=== PATIENT | male | born 1935 | race Caucasian/White ===

== ENCOUNTER 2017-05-06 07:39 | Inpatient (IN) ==
--- NOTE | 2017-05-06 08:55 | DI ---
EXAM: CHEST FRONTAL VIEW HISTORY: Cough. COMPARISON: 08/20/2015 FINDINGS: Heart size and mediastinum remain within normal limits. Ectasia of the aorta is again no king. There are scattered calcifications suggesting old granulomatous disease. No acute infiltrates are seen. No vascular congestion. There is no consolidation, visible pleural fluid or pneumothorax. Bones reveal no acute fracture. IMPRESSION: No acute cardiopulmonary process.
--- NOTE | 2017-05-06 08:56 | DI ---
EXAM: Right shoulder two views HISTORY: Shoulder pain. FINDINGS: There is at least mild glenohumeral joint arthropathy. Moderate AC joint osteoarthritis. No acute fracture is seen. No joint dislocation or soft tissue finding. IMPRESSION: Arthropathy of the shoulder. No acute findings.
--- NOTE | 2017-05-06 08:58 | DI ---
EXAM: Three views of the right elbow HISTORY: Right elbow pain. COMPARISON: None FINDINGS: There is no cortical irregularity or displaced fracture of the right elbow. There is degen erative change and osteophyte formation off the medial and lateral epicondyles. There is no lytic or blastic lesion. The soft tissues are normal. 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
[2017-05-06] MEDS ORDERED: ROCEPHIN 1 GM in SODIUM CHLORIDE 50 ML IV STA (09:25)
[2017-05-06] MEDS ORDERED: ROCEPHIN ONE (09:35)
--- NOTE | 2017-05-06 10:07 | ED.PDOC ---
General ED Provider: Dr. LILIANA BUSCH Chief Complaint: Fall Stated Complaint: weakness/ fall Time Seen by Physician: 08:00 (SEN WITH SHAHRIAR AND LEILANI PRESENT) Mode of Arrival: Ambulance Information Source: Patient, Family Exam Limitations: No limitations Primary Care Provider: VINAYAK MARCOS Nursing and Triage Documentation Reviewed and Agree: Yes (DENINED PAIN ALONG ENTIRE SPINE) Reviewed sepsis parameters & appropriate labs ordered?: Yes System Inflammatory Response Syndrome: Not Applicable Sepsis Protocol: For patient's 13 years and over: Temp is 96.8 and below OR 101 and greater Pulse >90 BPM Resp >20/minute Acutely Altered Mental Status Are patient's symptoms suggestive of a new infection, such as: -Pneumonia -Skin, Soft Tissue -Endocarditis -UTI -Bone, Joint Infection -Implantable Device -Acute Abdominal Infection -Wound Infection -Meningitis -Blood Stream Catheter Infection -Unknown System Inflammatory Response Syndrome: Not Applicable Miscellaneous Complaint Exam - Complex/Multi-System Complaint/Exam Onset/Duration: ground level fall C/O shoulder pain right sided and generalized weakness Symptoms Are: Still present Episodes Lasting: Hours Location of Pain: right elbow and shoulder Pain Radiates to: no Character: dull Aggravating: nothing Alleviating: none Associated Signs and Symptoms: Reports: Weakness, Cough Recent Echo/LV Function: No Respiratory Distress: None JVD Present: No Tachypnea Present: No Stridor Present: No Abdominal Findings: Present: Normal findings Glascow Coma Scale (see protocol): 15 Meningeal Signs Positive: Yes Focal Weakness: Present: None Focal Sensory Loss: Present: None Gait: Unable Gag Reflex Present: Yes Babinski Sign: Negative Right, Negative Left Skin Findings: Present: Normal findings Joint Swelling Present: No In-Dwelling Device Present: No Differential Diagnosis: Sepsis, UTI, Other (rhabdo) Quality Indicators for Cardiac Chest Pain: EKG in 10min. Quality Indicators for AMI: EKG in 10min. Quality Indicators For Pneumonia/CAP: Antibiotics in 6hr-admit, SpO2 assessed, Empiric Antibiotic Rx, Vital signs, Mental status assessed Quality Indicator For Non-Traumatic Chest Pain/Syncope: EKG Performed Review of Systems - Review Of Systems Constitutional: Reports: Malaise, Weakness Eyes: Reports: No symptoms Ears, Nose, Mouth, Throat: Reports: No symptoms Respiratory: Reports: Cough Cardiac: Reports: No symptoms GI: Reports: No symptoms : Reports: No symptoms Musculoskeletal: Denies: Back pain, Neck pain Skin: Reports: No symptoms Neurological: Reports: No symptoms Endocrine: Reports: No symptoms Hematologic/Lymphatic: Reports: No symptoms All Other Systems: Reviewed and Negative Past Medical History - Past Medical History Previously Healthy: Yes Endocrine: Reports: Dyslipidemia Cardiovascular: Reports: Hypertension Respiratory: Reports: None Hematological: Reports: None Gastrointestinal: Reports: None Genitourinary: Reports: None Neuro/Psych: Reports: None Musculoskeletal: Reports: None Cancer: Reports: None - Surgical History General Surgical History: Reports: None - Family History Family History: Reports: None - Social History Smoking Status: Current some day smoker Hx Substance Use: No Alcohol Screening: Occasionally - Immunizations Tetanus Shot up to Date: No Physical Exam - Physical Exam Appearance: Well-appearing Ill-appearing: Mild Pain Distress: Mild Eyes: FREDY, EOMI, Conjunctiva clear ENT: Dry mucosa Respiratory: Breath sounds diminished Cardiovascular: RRR, Pulses normal, No rub, No murmur GI/: Soft, Nontender, No masses, Bowel sounds normal, No Organomegaly Musculoskeletal: Normal strength, ROM intact, No edema, No calf tenderness Skin: Warm, Dry, Normal color Neurological: Sensation intact, Motor intact, Reflexes intact, Cranial nerves intact, Alert, Oriented Psychiatric: Affect appropriate, Mood appropriate Interpretation - Radiology Interpretation Radiology Interpretation By: Radiologist Radiology Results: No acute changes Physician Notification - Case Discussed Physician Notified: beverly WOOD Time of Notification: 10:12 Admit To: SCU Critical Care Note - Critical Care Note Total Time (mins): 0 Course - Course Hematology/Chemistry: 05/06/17 08:45 05/06/17 08:45 Orders, Labs, Meds: Lab Review 05/06/17 05/06/17 05/06/17 08:45 08:45 09:00 WBC 25.94 H RBC 3.82 L Hgb 12.7 L Hct 36.6 L MCV 95.8 H MCH 33.2 H MCHC 34.7 RDW Coeff of Jermaine 12.9 Plt Count 215 Immature Gran % (Auto) 0.9 Neut % (Auto) 88.4 Lymph % (Auto) 4.9 L [place] % (Auto) 5.7 Eos % (Auto) 0.0 Baso % (Auto) 0.1 Immature Gran # (Auto) 0.2 Neut # 23.0 H Lymph # 1.3 [place] # 1.5 Eos # 0.0 Baso # 0.0 Sodium 139 Potassium 3.8 Chloride 106 Carbon Dioxide 25 Anion Gap 11.8 BUN 13 Creatinine 0.95 Estimated GFR (MDRD) 76.00 BUN/Creatinine Ratio 13.68 Glucose 130 H Lactic Acid Calcium 9.3 Total Bilirubin 1.0 AST 36 ALT 19 Alkaline Phosphatase 47 L Total Creatine Kinase 1130 CK-MB (CK-2) 9.6 H* CK-MB (CK-2) % 0.23484 Troponin I 0.0270 Total Protein 6.3 Albumin 3.2 L Globulin 3.1 Albumin/Globulin Ratio 1.03 TSH 0.456 Free T4 0.96 Urine Color Dark Urine Clarity Slightly Urine pH 5.5 Ur Specific [place] 1.025 Urine Protein Negative Urine Glucose (UA) Negative Urine Ketones Negative Urine Blood 2+ Urine Nitrite Positive Urine Bilirubin 1+ Urine Urobilinogen 2.0 Ur Leukocyte Esterase 1+ Urine Microscopic WBC 5-10 Ur Squamous Epith Cells Not present Urine Bacteria 3+ 05/06/17 09:36 WBC RBC Hgb Hct MCV MCH MCHC RDW Coeff of Jermaine Plt Count Immature Gran % (Auto) Neut % (Auto) Lymph % (Auto) [place] % (Auto) Eos % (Auto) Baso % (Auto) Immature Gran # (Auto) Neut # Lymph # [place] # Eos # Baso # Sodium Potassium Chloride Carbon Dioxide Anion Gap BUN Creatinine Estimated GFR (MDRD) BUN/Creatinine Ratio Glucose Lactic Acid 12.1 Calcium Total Bilirubin AST ALT Alkaline Phosphatase Total Creatine Kinase CK-MB (CK-2) CK-MB (CK-2) % Troponin I Total Protein Albumin Globulin Albumin/Globulin Ratio TSH Free T4 Urine Color Urine Clarity Urine pH Ur Specific [place] Urine Protein Urine Glucose (UA) Urine Ketones Urine Blood Urine Nitrite Urine Bilirubin Urine Urobilinogen Ur Leukocyte Esterase Urine Microscopic WBC Ur Squamous Epith Cells Urine Bacteria Orders Category Date Time Status EKG-(ED ONLY) Stat CARDIO 05/06/17 08:13 Completed ED IV/MEDIPORT/POWERPORT .ONCE EMERGENCY 05/06/17 08:13 Active BLOOD CULTURE (ED ONLY) Stat LAB 05/06/17 09:36 Received CBC W/ AUTO DIFF Stat LAB 05/06/17 08:45 Completed COMPREHENSIVE METABOLIC PANEL Stat LAB 05/06/17 08:45 Completed CREATINE KINASE Stat LAB 05/06/17 08:45 Completed FREE T4 (FREE THYROXINE) Stat LAB 05/06/17 08:45 Completed LACTIC ACID Stat LAB 05/06/17 09:36 Received PROCALCITONIN Stat LAB 05/06/17 09:36 Received THYROID STIMULATING HORMONE Stat LAB 05/06/17 08:45 Completed TROPONIN I Stat LAB 05/06/17 08:45 Completed URINALYSIS C & S IF INDICATED Stat LAB 05/06/17 09:00 Completed URINE CULTURE Stat LAB 05/06/17 09:00 Received 0.9 % Sodium Chloride [Saline Flush] MEDS 05/06/17 08:12 Active 1 syr IVF PRN PRN Ceftriaxone Sodium [Rocephin] MEDS 05/06/17 09:35 Discontinued 1 gm .ROUTE .STK-MED ONE Ceftriaxone Sodium [Rocephin] 1 gm MEDS 05/06/17 09:25 Discontinued 0.9 % Sodium Chloride [Sodium Chloride] 50 ml IV ONCE CHEST, 1V AP ONLY Stat RADS 05/06/17 08:12 Completed ELBOW, RIGHT MIN 3 VIEWS Stat RADS 05/06/17 08:13 Completed SHOULDER, RIGHT MIN 2V Stat RADS 05/06/17 08:13 Completed Medications Generic Name Dose Route Start Last Admin Trade Name Freq PRN Reason Stop Dose Admin Sodium Chloride 1 syr 05/06/17 08:12 Saline Flush IVF PRN PRN To flush IV Discontinued Medications Generic Name Dose Route Start Last Admin Trade Name Freq PRN Reason Stop Dose Admin Ceftriaxone Sodium 1 gm/ 50 mls @ 75 mls/hr 05/06/17 09:25 05/06/17 09:48 Sodium Chloride IV 05/06/17 10:04 75 mls/hr ONCE STA Administration Vital Signs: Temp Pulse Resp BP Pulse Ox 05/06/17 07:43 98.1 F 77 20 147/82 H 95 Departure - Departure Time of Disposition: 10:12 Disposition: ADMITTED INPATIENT Discharge Problem: Falls Rhabdomyolysis Qualifiers: Rhabdomyolysis type: traumatic Encounter type: initial encounter Qualified Code (s): T79.6XXA - Traumatic ischemia of muscle, initial encounter UTI (urinary tract infection) Qualifiers: Urinary tract infection type: site unspecified Hematuria presence: with hematuria Qualified Code(s): N39.0 - Urinary tract infection, site not specified ; R31.9 - Hematuria, unspecified; R31.9 - Hematuria, unspecified Instructions: Rhabdomyolysis (ED) Condition: Good Pt referred to PMD for follow-up: Yes IPMP verified?: Yes Additional Instructions: Please call your Family Physician as soon as possible to schedule a follow-up appointment. Allergies/Adverse Reactions: Allergies No Known Allergies Allergy (Verified 05/06/17 08:02) Home Medications: Ambulatory Orders Aspirin [Aspirin Chewable] 81 mg PO DAILYWM 11/12/13 Lisinopril/Hydrochlorothiazide [Zestoretic 20-12.5 mg Tab] 0.5 tab PO DAILY 07/23 Metoprolol Tartrate [Lopressor] 50 mg PO DAILY 11/12/13 Omeprazole [Prilosec] 20 mg PO QDAC PRN 11/12/13 Simvastatin 20 mg PO BEDTIME 11/12/13 Tamsulosin HCl [Flomax] 0.4 mg PO DAILY 11/12/13 Fenofibrate Nanocrystallized [Fenofibrate] 145 mg PO DAILY 05/06/17 Levocetirizine Dihydrochloride [Xyzal] 5 mg PO DAILY 05/06/17 Memantine HCl 10 mg PO DAILY 05/06/17 Disposition Discussed With: Patient
[2017-05-06 11:32] VITALS: BMI 23.0
[2017-05-06] MEDS ORDERED: PROTONIX PO STA (13:16)
[2017-05-06] MEDS: INFUVITE ADULT 10 ML in D5%-1/2NS-KCL 40 MEQ/L IV SOL 1,000 ML IV SCH (14:59)
[2017-05-06] MEDS: GENTAMICIN SULFATE 70 MG in SODIUM CHLORIDE 50 ML IV SCH ×2 (15:04→21:29)
[2017-05-06] MEDS: FLOMAX PO SCH (15:04)
[2017-05-06] MEDS: ASPIRIN CHEWABLE PO SCH (15:04)
[2017-05-06] MEDS: ZESTORETIC 20-12.5 MG TAB PO SCH (15:05)
[2017-05-06] MEDS: LOPRESSOR PO SCH (15:06)
--- NOTE | 2017-05-06 20:50 | CT ---
EXAM: CT brain without contrast HISTORY: Fall with weakness and confusion TECHNIQUE: CT of the brain without intravenous contrast FINDINGS: There is no acute hemorrhage midline shift or mass effect. No hydrocephalus or abnormal e xtra-axial fluid collection. Generalized involutional atrophy, severe. Chronic microvascular change s of the white matter tracts, severe. No acute large vessel territorial infarct is seen. The bony c ranium appears normal. The visualized paranasal sinuses are clear. Soft tissues without significant a bnormality. IMPRESSION: 1. Chronic changes as described. No acute intracranial abnormality is seen.
--- NOTE | 2017-05-06 21:00 | CT ---
Exam: CT of the cervical spine without intravenous contrast. Comparison: CT cervical spine performed on 02/03/2015. Reason for exam: Fall at home with weakness. FINDINGS: No acute fracture is seen in the cervical spine. There is moderate to marked degenerative disease seen throughout the cervical spine with osseous demineralization. The prevertebral soft tis sues are within normal limits. The dens is intact. There is a similar appearing grade 1 anterior li sthesis of C4 on C5. Emphysematous disease is seen in the partially imaged lung apices. Impression: 1. No acute fracture is seen in the cervical spine. 2. Moderate to marked degenerative disease with diffuse osseous demineralization, intervertebral bod y disc space height loss, and facet hypertrophy with osteophyte formation. 3. Emphysematous disease in the partially imaged lung apices.
--- NOTE | 2017-05-06 21:00 | CT ---
EXAM: CT pelvis without contrast. TECHNIQUE: Helical axial CT of the pelvis was performed without contrast with coronal and sagittal r econstructions. COMPARISON: None. HISTORY: Trauma with painful right hip FINDINGS: There is no acute fracture or dislocation identified. The superior and inferior pubic kapil i are intact as well as the acetabuli. There is no evidence for proximal femur fracture. There is n o hip dislocation. The sacroiliac joints are unremarkable. There are no sacral ala fracture. The i lium and ischium are intact bilaterally. There is no evidence for lower lumbar fracture. There has b een extensive lumbosacral instrumentation. Hardware appears intact. There are no acute soft tissue a bnormalities. There is advanced atherosclerosis. There is some mild degenerative change of the bilate ral hip joints. IMPRESSION: 1. No acute osseous abnormality in the right hip or elsewhere in the bony pelvis. 2. Other findings as above.
[2017-05-07] MEDS ORDERED: POTASSIUM CHLORIDE 10 MEQ VIAL-ADDITIVE ONLY IV ONE (02:54)
[2017-05-07] MEDS ORDERED: INFUVITE ADULT IV ONE ×2 (02:55→15:16)
[2017-05-07] MEDS: INFUVITE ADULT 10 ML in D5%-1/2NS-KCL 40 MEQ/L IV SOL 1,000 ML IV SCH ×2 (03:10→15:45)
[2017-05-07] MEDS: PROTONIX PO SCH (05:48)
[2017-05-07] MEDS: LOPRESSOR PO SCH (07:45)
[2017-05-07] MEDS: TYLENOL PO PRN ×2 (07:45→23:29)
[2017-05-07] MEDS: ASPIRIN CHEWABLE PO SCH (07:46)
[2017-05-07] MEDS: ROCEPHIN 1 GM in SODIUM CHLORIDE 50 ML IV SCH (08:30)
[2017-05-07] MEDS: GENTAMICIN SULFATE 70 MG in SODIUM CHLORIDE 50 ML IV SCH ×2 (08:31→20:11)
[2017-05-07] MEDS: ZESTORETIC 20-12.5 MG TAB PO SCH (11:06)
[2017-05-07] MEDS: FLOMAX PO SCH (11:07)
[2017-05-07] MEDS ORDERED: POTASSIUM CHLORIDE 20 MEQ VIAL-ADDITIVE ONLY IV ONE (15:17)
[2017-05-07] MEDS ORDERED: VITAMIN B-12 IM STA (19:29)
[2017-05-07] MEDS ORDERED: DEPAKOTE PO STA (19:30)
[2017-05-07] MEDS: VITAMIN B-12 IM SCH (20:16)
[2017-05-08] MEDS ORDERED: DESYREL ONE ×2 (02:24→03:41)
[2017-05-08] MEDS: DESYREL PO STA ×2 (02:24→03:41)
[2017-05-08] MEDS ORDERED: DESYREL PO STA (03:36)
[2017-05-08] MEDS ORDERED: INFUVITE ADULT IV ONE (03:52)
[2017-05-08] MEDS ORDERED: POTASSIUM CHLORIDE 20 MEQ VIAL-ADDITIVE ONLY IV ONE ×2 (03:52→03:54)
[2017-05-08] MEDS: INFUVITE ADULT 10 ML in D5%-1/2NS-KCL 40 MEQ/L IV SOL 1,000 ML IV SCH (05:19)
[2017-05-08] MEDS: PROTONIX PO SCH (05:31)
[2017-05-08] MEDS: GENTAMICIN SULFATE 70 MG in SODIUM CHLORIDE 50 ML IV SCH ×2 (09:14→21:22)
[2017-05-08] MEDS: ASPIRIN CHEWABLE PO SCH (09:26)
[2017-05-08] MEDS: LOPRESSOR PO SCH (09:26)
[2017-05-08] MEDS: VITAMIN B-12 IM SCH (09:27)
[2017-05-08] MEDS: FLOMAX PO SCH (09:32)
[2017-05-08] MEDS: ZESTORETIC 20-12.5 MG TAB PO SCH (09:32)
[2017-05-08] MEDS: ROCEPHIN 1 GM in SODIUM CHLORIDE 50 ML IV SCH (09:56)
[2017-05-08] MEDS: DEPAKOTE PO SCH ×2 (12:55→21:08)
[2017-05-09] MEDS: PROTONIX PO SCH (06:23)
[2017-05-09] MEDS: ASPIRIN CHEWABLE PO SCH (09:21)
[2017-05-09] MEDS: FLOMAX PO SCH (09:21)
[2017-05-09] MEDS: DEPAKOTE PO SCH (09:21)
[2017-05-09] MEDS: LOPRESSOR PO SCH (09:22)
[2017-05-09] MEDS: GENTAMICIN SULFATE 70 MG in SODIUM CHLORIDE 50 ML IV SCH (09:22)
[2017-05-09] MEDS: VITAMIN B-12 IM SCH (09:23)
[2017-05-09] MEDS: ZESTORETIC 20-12.5 MG TAB PO SCH (09:23)
[2017-05-09] MEDS: ROCEPHIN 1 GM in SODIUM CHLORIDE 50 ML IV SCH (10:40)
--- NOTE | 2017-05-09 11:14 | RS.PTINEVL ---
Subjective - Patient information Date of Evaluation: 05/09/17 Date of Arrival on Unit: 05/06/17 Admitted From:: Home Diagnosis: fall at home, weakness, rhabdomyolysis, UTI Usual Living Arrangement: Alone Living Arrangement Comments: has family and friends who assist with meals, housekeeping etc Home Environment: House, Stairs (few), Rail Medical History: Hypertension, Dementia, Arthritis Medical History Comments:: CAD, Alzheimer's disease, GERD Surgical History: Lumbar Spine Surgical History Comments:: cardiac stent Medications: see chart Subjective Information/ Patient Comments:: pt states he is feeling better today. pt states he has been sitting up since breakfast. - Level of function Prior to this admission, the patient could do the following:: Independent ADL's , Independent Ambulation Abilities prior to this admission: pt had assist with housekeeping as well as occasionally helped with meals Current Level of Function: Partially Dependent Current Equipment Used at Home: Straight cane Interventions - Objective Patient Orientation: Person, Place Current Interventions: IV's, Telemetry Range of Motion - ROM Right Upper Extremity AROM: WFL's Left Upper Extremity AROM: WFL's Right Lower Extremity AROM: WFL's Left Lower Extremity AROM: WFL's Muscle Strength - Muscle Strength Right Upper Extremity Strength: Mild Weakness (shld flex 4-/5, elbow flex/ext 4/ 5, decreased manufacturers service representative strength) Left Upper Extremity Strength: Mild Weakness (shld flex 4-/5, elbow flex/ext 4/5 , decreased manufacturers service representative strength) Right Lower Extremity Strength: Mild Weakness (hip flex 4-/5, knee flex/ext 4-/5 , ankle DF/PF 4/5) Left Lower Extremity Strength: Mild Weakness (hip flex 4-/5, knee flex/ext 4-/5 , ankle DF/PF 4/5) Sensation - Sensation Right Upper Extremity Sensation: Intact/Normal Left Upper Extremity Sensation: Intact/Normal Right Lower Extremity Sensation: Intact/Normal Left Lower Extremity Sensation: Intact/Normal Palpation Palpation Findings: None/Normal Balance - Sitting Balance and Reactions Static Sitting Balance: Good Dynamic Sitting Balance: Fair Sitting Equilibrium Reactions: Delayed Left, Delayed Right Sitting Protective Reactions: Delayed Left, Delayed Right - Standing Balance and Reactions Static Standing Balance: Poor Dynamic Standing Balance: Poor Standing Equilibrium Reactions: Delayed Left, Delayed Right Standing Protective Reactions: Delayed Left, Delayed Right - Comments Balance Assessment Comments: Tinetti score 13/28 Functional Mobility - Bed Mobility Comments:: pt seen sitting up in chair and nursing did not want pt to go back to bed until they had changed his linens. - Transfers Sit to Stand: Min Assist Stand to Sit: Min Assist - Safety Awareness Safety Awareness: Poor Ambulation - Ambulation Assistive Device Used: Rolling Walker Orthotic/Prosthetic Device: No Distance: 100ft Assistance needed with Ambulation: Min Assist, 1 person assist Gait Deviations: Ataxic gait, Forward posture, Short stride Ambulation Comments: pt amb with ataxic gait pattern with flexed posture, decreased step length and required frequent cues for sequencing. Factors Affecting Ambulation: Decreased Balance, Weakness, Decreased Safety, Cognitive Status, Limited Endurance Treatment time - Time with patient Total treatment time: 29 Patient Education - Education Patient Education: Activity Modification, Education of Plan of Care Teaching Recipient: Patient Teaching Methods: Discussion (Discussion with patient regarding safety with transfers as well as sequencing with rwx.) Assessment - Assessment Problem List:: Decreased level of function, Requires training/education, Decreased safety/Risk of falls, Weakness, Cognitive status limits abilities Rehab Potential: Good Further Therapy Indicated?: Yes Comments: Feel pt would benefit from skilled PT for therex for LE strengthening , balance activities, as well as gait training to improve functional mobility and decrease risk of falls. Short Term Goals GOAL #1: pt transfer sup to/from sit CGA sit to/from stand SBA Goal to be met by: 05/12/17 GOAL #2: pt amb 150ft with rwx with CGA with no LOB Goal to be met by: 05/12/17 [facility] Goals GOAL #1: pt demonstrate improved dyn stand balance as noted by tinetti Goal to be met by: 05/14/17 GOAL #2: pt transfer sup to/from sit to/from stand with supervision Goal to be met by: 05/14/17 GOAL #3: pt amb functional household distance with rwx with SBA with no LOB Goal to be met by: 05/14/17 Plan Plan of Care: Therapeutic EX, Therapeutic Activity Other:: gait training Frequency of Treatment: 1-2 X day, as tolerated Duration of Treatment: 5 days Anticipated Discharge Destination: undecided at this time. Has the Physician been added for Co-signature?: Yes
[2017-05-09 14:20] VITALS: BP 116/64; TEMP 97.7
--- NOTE | 2017-05-10 13:08 | HP ---
DATE OF SERVICE: 05/06/17 CHIEF COMPLAINT: Generalized weakness, fell twice. SOURCE OF HISTORY: Emergency room notes, the nurse and physician. The patient does follow verbal commands and able to answer questions but has poor recollection of events. HISTORY OF PRESENT ILLNESS: The patient was brought to the emergency room by his son. The patient had a fall one week ago and also today prompting the emergency room visit. The patient had markedl elevated leukocyte count, reason undetermined, abnormal urinalysis and markedly elevated CK. The elevated CK may be from the fall. PAST PERSONAL HISTORY: The patient has history of syncopal episode although I could not confirm that with him and also history of confusion. He had a cardiac catheterization with stent done in [place] a few years ago. He had a fracture to the right ankle when he was very young. He also had back surgery as well as abdominal surgery. He wasn't sure what the surgery was for the abdomen, questionably ulcer. The patient was admitted in 03/31/2014; recent admission for weakness and dehydration. He was also admitted 11/12/2013, reason syncopal episode; admission 10/25/2013 again for syncope with some questionable head injury. Chest pain 2012 admission. Other problems are hypertension and benign prostatic hypertrophy and osteoarthritis. The patient had previous cholecystectomy as well as lumbar surgery. FAMILY HISTORY: Two half sisters had senile dementia. Father at a younger age. One brother had myocardial infarction. Mother had dementia. SOCIAL HISTORY: The patient is and resides alone. He has a son. He still drinks one to two cans of beer a day and still smokes. MEDICATIONS: Prior to this admission, aspirin 81 mg daily; Lisinopril/Hydrochlorothiazide 20/ 12.5 one-half tablet daily; Metoprolol 50 mg daily; Simvastatin 20 mg daily; Omeprazole 20 mg daily p.r.n.; Flomax 0.4 mg daily; Xyzal 5 mg tablet daily; Fenofibrate 145 mg daily; Namenda 10 mg daily and Zocor 20 mg daily. ALLERGIES: NKDA REVIEW OF SYSTEMS: CONSTITUTIONAL: The patient has no fever or chills but with generalized weakness. He is not able to stand straight when he walk or when he tries to get out of bed. SCAGLIOLA MECHANIC: The patient had confusion as well as forgetfulness. He had several episodes of syncope requiring hospital admission. No history of seizures. VISUAL: The patient denies any loss of vision, double vision or blurred vision. AUDITORY: The patient is able to hear and does answer questions. Denies any ringing, pain or drainage. RESPIRATORY: The patient denies any shortness of breath. CARDIOVASCULAR: He denies any chest pain. This patient has history of coronary artery disease with stent deployed some years ago. GASTROINTESTINAL: The patient denies any problems swallowing solids or liquids. Denies any abdominal pain. GENITOURINARY: The patient denies any pain on urination. ENDOCRINE: Negative. INTEGUMENT: Denies any rash or pruritus. HEMATOLOGIC: No history of prolonged bleeding or easy bruising. PSYCHIATRIC: Affect is decreased. PHYSICAL EXAMINATION: GENERAL: 81-year-old male admitted to the hospital because of recurrent falls, confusion, generalized weakness and staggering gait and abnormal urinalysis, markedly elevated CK with markedly elevated WBC. HEAD: Unremarkable. Face is symmetrical and equal with no facial weakness. He denies any significant tenderness in the frontomaxillary sinus areas to palpation and/or pressure. EYES: Pupils equal, round and reactive to light. Conjunctivae not pale. Sclerae not icteric. THROAT: No inflammation, tumors or exudate. NECK: No masses. No bruit. No tenderness. No rigidity. CHEST: Symmetrical and equal with good expansion. LUNGS: Clear to auscultation on both sides. No rales or wheezing. HEART: Audible and regular with good tones. No murmurs. ABDOMEN: Soft with no remarkable tenderness. No guarding. Bowel sounds are active. No masses palpable. LOWER EXTREMITIES: Ankle edema. Pedal pulses difficult to find. UPPER EXTREMITIES: Symmetrical and equal. ASSESSMENT: 1. GENERALIZED WEAKNESS 2. ATAXIA 3. RECURRENT FALLS 4. MODERATE TO SEVERE LEUKOCYTOSIS, REASON UNDETERMINED 5. URINARY TRACT INFECTION 6. MARKEDLY ELEVATED CK PROBABLY SECONDARY TO TRAUMA - FALL 7. B12 DEFICIENCY, PROBABLE PLAN: This patient may need to have alternative residence after discharge unless he improves remarkably with the physical therapy. He will be given B12 injection hoping that it will improve his cognitive problems. PROGNOSIS: Guarded. MTDD
--- NOTE | 2017-05-10 13:30 | PN ---
DATE OF VISIT: 05/07/17 SUBJECTIVE: The patient today is alert and wanted to get out of bed. He was ordered a bed alarm since last night when he was trying to get out of bed. His lungs remain clear today. The patient does follow verbal commands and answers questions. He is not dyspneic and no cyanosis. Urine showed colony count greater than 100, 000. Heavy growth of gram negative rods. The patient is on Garamycin which would be appropriate for the bacterial growth. That remains to be seen when we get the identification as well as the GAGE. WBC today is down to 21,000 from 25, 000. MTDD
--- NOTE | 2017-05-10 13:32 | DS ---
PATIENT IDENTIFICATION: 81 year old male who resides alone at home because of weakness and difficulty ambulating. The patient had fallen last week and since then the patient had been growing weaker and again had a fall this morning prompting the patient's presentation to the emergency room. She was transported by ambulance from his home. The patient was evaluated by the Emergency room physician and felt that this patient needs to be admitted because of generalized weakness and inability to ambulate. The workup that he had done at the emergency room consisted of x-ray of the shoulder, elbow and chest x-ray. No fracture of the right shoulder, no fracture of the right elbow and chest x-ray no acute cardiopulmonary process. The patient had a markedly elevated WBC 25,940. No scabs. Total CK 1,130, CK-MB 9.6, Troponin 0.0270. HOSPITAL COURSE: The patient during the examination was alert and does follow verbal commands but somewhat restless. He tries to get out of bed as often as he can. He admits to drinking one or two cans of beer a day. The patient's lactic acid is normal 12.1, procalcitonin slightly elevated 0.52. TSH is 0.456. The patient had an abnormal urinalysis 2+ blood, positive nitrate, positive leukocyte esterase, 5- 10 WBC, 3+ bacteria. The patient was continued on his medications except the fenofibrate and Simvastatin because of the markedly elevated CK. The elevation maybe secondary to the fall but it could also due to the combination of simvastatin and Fenofibrate. LUNGS: Clear to auscultation HEART: Normal sinus rhythm NECK: No masses and No bruit ABDOMEN: Soft with nontender The patient on the second days seems to have a little bit more tremors. The son was talking to me about the problem and he felt maybe his dad was drinking more than what he admits to one or two cans a day and the tremors maybe from being withdrawn from alcohol. His CBC showed elevated MCV and MCH probably secondary to B12 deficiency maybe related to alcohol intake. The patient in the presents to his son was advised never to resume drinking even a half a can of beer a day. He just invalidates the B complex absorption with alcohol. I did also inform them that maybe his cognitive problems may improve without alcohol and supplementation of B complex vitamins. He is receiving B 12 injections 1,000mcg IM daily for now. He should also receive Primghar B 100 supplementation and I did explain that to the son with the Primghar B 100 is. The patient is receiving Depakote 250mg twice a day. It appears that the patient's problem had improved today and his thinking seemed to be better and that had been observed by his son. The patient on examination had a bruise on the right hip probably from the fall. A CAT scan of the right hip and Pelvis was then ordered showing no significant bone abnormalities. The CAT scan of the head and neck was also done since the fall was witness. This also showed no acute gulshan fractures. The patient was examined and evaluated by physical therapy and they felt that physical would improve his stamina and the patient was then discharged from acute care to transitional. A repeat urinalysis showed improvement. The urine culture showed gram negative rods identified as Citrobacter Koseri and sensitive to Gentamicin. It also sensitive to Levofloxacin and all host of medications tested. The patient discharged as alert and movement of all extremities upper and lower with similar strength. The patient at discharge was alert and responsive and follows verbal commands and seems to have a better thinking process. The patient's vital signs showed a temperature 973.7, pulse 60 , blood pressure 116/64, respiratory rate 16, oxygen saturation 98 at room air at 10:00am. This patient will be admitted to transitional care under Dr. Hayes' s services. I felt that he needed to continue all his medications for now and continue the physical therapy. I had explained to the son that maybe he would need more physical therapy to get him stronger before he goes home as he can see physical therapy. It is also amaya to have somebody stay with him probably 24 hours a day probably for the first month. This individual should walk him during the day time several times not only once or twice but several times a day. The son seems to agree with me. FINAL DIAGNOSES: 1. Generalized weakness with recurrent fall cause undetermined 2. 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 3. Rhabdomyolysis probably secondary to fall versus medication Simvastatin and Fenofibrate combination 4. History of GERD PROGNOSIS: Guarded. MTDD
== END 2017-05-09 14:47 | disposition swing bed (61) | DRG 948 ==
LOC: ED 07:39 → SCU 10:21
PROVIDERS: ADMIT General Practice; ATTEND General Practice
DX: R41.0 Disorientation, unspecified (principal); N39.0 Urinary tract infection, site not specified; R26.0 Ataxic gait; R53.1 Weakness; T79.6XXA Traumatic ischemia of muscle, initial encounter; F03.90 Unspecified dementia, unspecified severity, without behavioral disturbance, psychotic disturbance, mood disturbance, and anxiety; R25.1 Tremor, unspecified; R31.9 Hematuria, unspecified; K21.9 Gastro-esophageal reflux disease without esophagitis; M25.511 Pain in right shoulder; M25.521 Pain in right elbow; B96.89 Other specified bacterial agents as the cause of diseases classified elsewhere; R29.6 Repeated falls; W19.XXXA Unspecified fall, initial encounter; Y92.002 Bathroom of unspecified non-institutional (private) residence as the place of occurrence of the external cause; Z79.899 Other long term (current) drug therapy
CPT/HCPCS: 36415; 80053; 80170; 81001; 82550; 82553; 83605; 84145; 84439; 84443; 84484; 85025; 87040; 87081; 87086; 87186; 93005; 93010; 96365; 96366; 99285

== ENCOUNTER 2017-05-09 15:07 | Inpatient (IN) ==
[2017-05-09] MEDS ORDERED: TYLENOL PO PRN (15:41)
[2017-05-09 17:03] VITALS: BMI 22.9
[2017-05-09 18:56] VITALS: BP 148/81; TEMP 98.4
[2017-05-09] MEDS ORDERED: MORPHINE 2 MG/ML SYRINGE ONE (20:48)
[2017-05-09] MEDS ORDERED: GENTAMICIN SULFATE 70 MG in SODIUM CHLORIDE 50 ML IV SCH (21:00)
[2017-05-09] MEDS ORDERED: DEPAKOTE PO SCH (21:00)
[2017-05-10] MEDS ORDERED: PROTONIX PO SCH (06:30)
[2017-05-10] MEDS ORDERED: NON-FORMULARY MEDICATION (Omeprazole [Prilosec] 20 MG) PO SCH (06:30)
[2017-05-10] MEDS ORDERED: ASPIRIN CHEWABLE PO SCH (08:00)
[2017-05-10] MEDS ORDERED: ROCEPHIN 1 GM in SODIUM CHLORIDE 50 ML IV SCH (09:00)
[2017-05-10] MEDS ORDERED: VITAMIN B-12 IM SCH (09:00)
[2017-05-10] MEDS ORDERED: LOPRESSOR PO SCH (09:00)
[2017-05-10] MEDS ORDERED: ZESTORETIC 20-12.5 MG TAB PO SCH (09:00)
[2017-05-10] MEDS ORDERED: FLOMAX PO SCH (09:00)
--- NOTE | 2017-05-13 13:09 | PN ---
DATE OF SERVICE: 05/09/17 SUBJECTIVE: The patient was seen and examined with the nurse practitioner. The patient has less back pain, more alert today. PHYSICAL EXAMINATION: HEENT: Head normocephalic, atraumatic. Eyes: Extraocular muscles are intact. Pupils are equal, round and reactive to light and accommodation. Ears: No lesions. Nose appeared normal. Throat: No exudate or erythema. NECK: Supple. No JVD, no carotid bruit. No lymphadenopathy or thyromegaly. LUNGS: Decreased breath sounds with mild wheeze. Percussion note normal. Chest symmetrical. HEART: S1, S2, no S3. No murmurs. No cyanosis or clubbing. No ascites. Pulses: Dorsalis pedis and posterior tibial pulses +1 to +2 both sides. ABDOMEN: Soft. Nontender. Bowel sounds active. No CVA tenderness. No mass felt. EXTREMITIES: No edema. Full range of motion of all extremities, equal. 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 NEUROLOGIC: No focal deficit. Cranial nerves II through XII are grossly intact. No headache, no double vision or headache. SKIN: Not dry. Intact. Turgor - normal. LYMPHATIC: No palpable lymph nodes/no lymphedema. MUSCULOSKELETAL: Normal joints with no swelling. Muscle tone is normal. LABS: U/A was practically completely normal. It's very unusual to have normal U/A in this such a short time if the patient had Rhabdomyolysis. 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 PLAN: The patient will be started on physical therapy. CONDITION: Stable. TIME SPENT: More than 30 minutes. Plan and coordination of the patient's care discussed in the presence of nurse. CRISTIANAD
--- NOTE | 2017-05-17 09:17 | SSS ---
DATE OF SERVICE: 05/09/17 REASON FOR ADMISSION/HISTORY OF PRESENT ILLNESS: The patient was hospitalized 05/06/17 with history of generalized weakness. The patient had fallen twice at home. The patient's work up revealed high CK level which was muscle fraction. There was no evidence of Rhabdomyolysis. The patient' s CK level was elevated with muscle injury and MB fraction was in acceptable range with no evidence of acute [place] or ischemia. The patient's U/A was abnormal but in two days that patient U/A showed remarkably improvement mostly the patient's U/A was normal secondary to urinary tract infection. The patient's kidney functions have practically normal throughout. The patient is alert but gets confused at times. 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 REVIEW OF SYSTEMS: CONSTITUTIONAL: No night sweats. No fatigue, malaise, lethargy. No fever or chills. HEENT: Eyes: No visual changes. No eye pain. No eye discharge. ENT: No runny nose. No epistaxis. No sinus pain. No sore throat. No odynophagia. No ear pain. No congestion. RESPIRATORY: No cough, no congestion. No hemoptysis. No shortness of breath. CARDIOVASCULAR: No angina symptoms. No CHF symptoms. No atypical chest pain for CAD. No palpitations. No orthopnea. GASTROINTESTINAL: No abdominal pain. No nausea or vomiting. No diarrhea or constipation. No hematemesis. No hematochezia. GENITOURINARY: No dysuria. No hematuria. No obstructive symptoms. No discharge. No pain. No significant abnormal bleeding. MUSCULOSKELETAL: No musculoskeletal pain. No joint swelling. NEUROLOGICAL: Awake, alert, oriented to time, place and person. No headache. No neck pain. No syncope. No seizures. No dizziness. PSYCHIATRIC: Not anxious. No depression. No suicidal thoughts. No homicidal thoughts. SKIN: No rash. No lesions. No wounds. ENDOCRINE: No unexplained weight loss. No weight gain. HEMATOLOGIC/LYMPHATIC: No anemia. No purpura. No petechiae. No prolonged or excessive bleeding. No palpable lymph nodes. PAST HISTORY: The patient has history of syncopal episode in the past but very poor historian. This hospitalization this patient was treated for urinary tract infection and the patient has been weak requiring help to get up. DISCUSSION: Discussion was held by the attending physician Dr. Baird with the son and patient and they are agreeable to stay in the swing bed as primary MD I agreed to take this patient under me for swing bed. PERSONAL/FAMILY HISTORY/SOCIAL HISTORY: The patient is and has two half sisters. He lives by himself. He has a son that helps. The patient is a smoker, drinks socially. PHYSICAL EXAMINATION: GENERAL: The patient is oriented to person and place, weak. VITAL SIGNS: Temperature 98, pulse 78, respiratory rate 15, blood pressure 138/ 70. HEENT: Head normocephalic, atraumatic. Eyes: Extraocular muscles are intact. Pupils are equal, round and reactive to light and accommodation. Ears: No lesions. Nose appeared normal. Throat: No exudate or erythema. NECK: Supple. No JVD, no carotid bruit. No lymphadenopathy or thyromegaly. LUNGS: Decreased breath sounds but clear to auscultation. Percussion note normal. Chest symmetrical. HEART: S1, S2, no S3. No murmurs. No cyanosis or clubbing. No ascites. Pulses: Dorsalis pedis and posterior tibial pulses +1 to +2 both sides. ABDOMEN: Soft. Nontender. Bowel sounds active. No CVA tenderness. No mass felt. EXTREMITIES: No edema. Full range of motion of all extremities, equal. NEUROLOGIC: No focal deficit. Cranial nerves II through XII are grossly intact. No headache, no double vision or headache. SKIN: Not dry. Intact. Turgor - normal. LYMPHATIC: No palpable lymph nodes/no lymphedema. MUSCULOSKELETAL: Normal joints with no swelling. Muscle tone is normal. ALLERGIES: No known allergies MEDICATIONS: Aspirin one a day Lisinopril Hydrochlorothiazide Metoprolol Simvastatin Omeprazole Flomax Fenofibrate Namenda Zocor LABS/EKG'S/X-RAY/ECHO/ABG: The patient's PSA was reported as 16.5 on 05/08/17. The patient's PSA was less than 1 on October 2016 done by me in the office. Likely cause of elevated PSA in such a short time is either prostatitis or urinary tract infection with prostatitis. PROGRESS NOTES: See EMR. HOSPITAL COURSE: Fernandez Hoyos was hospitalized with fall nearly a week ago and weakness. The patient had evidence of muscle damage and urinary tract infection. The patient' s condition has improved some. He was admitted to swing bed for physical therapy. During early evening the patient had fallen in the room and per protocol he was sent to the emergency room and one of the fingers was subluxated which was corrected and further investigation revealed femoral neck fracture which patient was transferred to [facility]. In Emergency Room Dr. Naqvi examined the patient and took care of the transfer. DIAGNOSES: 1. Fracture of right neck of the femoral bone 2. Subluxation of one of the fingers of the left hand corrected by Dr. Naqvi 3. Generalized osteoarthritis 4. Dementia 5. Urinary tract infection 6. Generalized weakness seems to be combination of deterioration of his oral health, Chronic lung disease, Inactivity and poor food intake 7. Ataxia is combination or poor musculature and bilateral sciatica 8. Recurrent falls was combination of above mentioned 9. UTI contributed towards to overall weakness CONDITION: At time of transfer was stable. TIME SPENT: More than 70 minutes. MTDD
--- NOTE | 2017-05-17 09:19 | PN ---
05/09/17: Same day H&P and Discharge on swing bed MTDD
== END 2017-05-09 21:40 | disposition short-term general hospital (02) | DRG 690 ==
LOC: SCU 15:07
PROVIDERS: ADMIT Internal Medicine; ATTEND Internal Medicine
DX: N39.0 Urinary tract infection, site not specified (principal); S72.001A Fracture of unspecified part of neck of right femur, initial encounter for closed fracture; R53.1 Weakness; R27.0 Ataxia, unspecified; M15.9 Polyosteoarthritis, unspecified; F03.90 Unspecified dementia, unspecified severity, without behavioral disturbance, psychotic disturbance, mood disturbance, and anxiety; K08.9 Disorder of teeth and supporting structures, unspecified; J44.9 Chronic obstructive pulmonary disease, unspecified; R63.0 Anorexia; M47.9 Spondylosis, unspecified; M54.32 Sciatica, left side; M54.31 Sciatica, right side; S63.204A Unspecified subluxation of right ring finger, initial encounter; W19.XXXA Unspecified fall, initial encounter; Y92.239 Unspecified place in hospital as the place of occurrence of the external cause; F17.210 Nicotine dependence, cigarettes, uncomplicated; Z91.81 History of falling; Z72.3 Lack of physical exercise; W19.XXXD Unspecified fall, subsequent encounter; Z79.82 Long term (current) use of aspirin; Z79.899 Other long term (current) drug therapy

== ENCOUNTER 2017-05-09 18:25 | Emergency (ER) ==
[2017-05-09 18:42] VITALS: BP 163/81; TEMP 98.5; BMI 26.6
--- NOTE | 2017-05-09 19:19 | CT ---
EXAM: CT scan of the cervical spine without contrast HISTORY: Fall TECHNIQUE: Imaging of the cervical spine was performed without contrast. Sagittal and coronal recon structions and axial images were provided for interpretation. FINDINGS: There is straightening of the cervical spine. The occipital condyles, some ring appear in tact. The odontoid process and C2 vertebral body appear normal. No acute abnormalities are seen wit hin the spinous processes. There is a normal alignment of the facet joints. IMPRESSION: No evidence of acute fracture dislocation seen within the cervical spine.
--- NOTE | 2017-05-09 19:21 | CT ---
EXAM: CT scan of the head without contrast HISTORY: Fall TECHNIQUE: Imaging of the head was performed without contrast. 5 mm thin axial images and coronal a nd sagittal images were provided for interpretation. FINDINGS: The lateral ventricles and cortical sulci are prominent from atrophy. Diffuse low density changes are seen throughout the supratentorial white matter. No acute hemorrhages are seen. There are no extraaxial collections. There is no mass effect. The calvarium appears normal. The extracra nial soft tissues are normal. IMPRESSION: No acute traumatic abnormalities are seen. Chronic small vessel ischemic changes seen within the supratentorial white matter.
--- NOTE | 2017-05-09 19:27 | CT ---
EXAM: CT scan of the chest without contrast HISTORY: Fall TECHNIQUE: Imaging of the chest was performed without contrast. 5 mm thin axial images and coronal a nd sagittal reconstructions were provided for interpretation. FINDINGS: The heart is normal size. No mediastinal masses are seen. There is atherosclerotic calci fication of the thoracic aorta and coronary arteries. Lungs are clear. No acute fractures are seen within the osseous structures. IMPRESSION: No acute traumatic abnormalities are seen within the thorax.
[2017-05-09] MEDS ORDERED: LIDOCAINE HCL 1% SDV SUBCUT STA (19:35)
--- NOTE | 2017-05-09 19:39 | CT ---
EXAM: CT thoracic spine without contrast HISTORY: Fall. COMPARISON: CT chest 05/09/2017 TECHNIQUE: Serial axial images of the thoracic spine were obtained without contrast. These were vie wed in multiple planes. FINDINGS: There is multilevel degenerative disease with mild scattered anterior disc osteophytes and mild scattered facet arthropathy. There is no lytic or blastic lesion. The osseous structures are ot herwise unremarkable. The soft tissues demonstrate mild atherosclerotic disease and calcified medias tinal lymph nodes. There are surgical changes of the GE junction. There is mild emphysema IMPRESSION: 1. No acute osseous abnormality, compression fracture or subluxation. 2. Multilevel degenerative disease of the thoracic spine and mild facet arthropathy. 3. Mild emphysema.
--- NOTE | 2017-05-09 19:42 | CT ---
Exam: CT lumbar spine without contrast History: Fall with back pain Technique: [address] lumbar spine with multiplanar reformations FINDINGS: The bones are demineralized. Vertebral body height is maintained. Prior fusion of L4 - S 1 with 7 mm anterior listhesis of L5. The hardware is intact without evidence of loosening or failur e. Multilevel bone on bone disc space narrowing and endplate spondylosis. No fracture lines or susp icious bony lesions. The sacrum is intact. Impression: 1. No acute abnormalities of the lumbar spine. 2. Prior L4 pain and S1 fusion. 3. The severe multilevel disc disease. Likely no significant interval change from MRI 04/02/2016.
--- NOTE | 2017-05-09 19:46 | CT ---
EXAM: CT scan of the pelvis without contrast HISTORY: Fall TECHNIQUE: Helical imaging of the pelvis was performed without contrast. Axial images and coronal a nd sagittal reconstructions were provided for interpretation. FINDINGS: The femoral head are seen in normal position. There is a fracture seen along the right fe moral neck. There is disruption of the medial cortex of the right femoral neck seen on the coronal i mages. The pubic rami are intact. No acute fractures are seen within the bilateral acetabulum. The sacrum appears intact. Postoperative changes of pedicle screw fixation are seen within the lower carson mbar spine and sacrum. IMPRESSION: There is an acute probable subcapital fracture of the right femoral neck without femoral head dislocation.
--- NOTE | 2017-05-09 19:47 | DI ---
Exam: Right hand three-view History: Injury and pain Findings / impression: Fracture dislocation of the proximal interphalangeal joint of the fourth digi t. The middle phalanx remains perched on the dorsum of the proximal phalanx. Fracture nondisplaced fracture at the base of the middle phalanx is questionable. Consider follow-up radiograph after redu ction. Moderate interphalangeal, intercarpal and carpal-metacarpal osteoarthritic changes.
--- NOTE | 2017-05-09 19:48 | DI ---
Exam: Right fingers four views History: Trauma and pain Findings / impression: Dislocation of the proximal phalangeal joint of the fourth digit. The number five X is perched on the dorsum of the proximal phalanx. No fracture line is seen on these images.
--- NOTE | 2017-05-09 20:03 | ED.PDOC ---
General ED Provider: Dr. JAYLA HAWKINS-ER Chief Complaint: Finger Pain/Injury Stated Complaint: fell in scu--noted hip pain and dislocated right ring finger and right femoral neck Time Seen by Physician: 18:30 Mode of Arrival: Stretcher Information Source: Patient, Family, Nurse Primary Care Provider: VINAYAK ARMIJO Nursing and Triage Documentation Reviewed and Agree: Yes Reviewed sepsis parameters & appropriate labs ordered?: Yes System Inflammatory Response Syndrome: Not Applicable Sepsis Protocol: For patient's 13 years and over: Temp is 96.8 and below OR 101 and greater Pulse >90 BPM Resp >20/minute Acutely Altered Mental Status Are patient's symptoms suggestive of a new infection, such as: -Pneumonia -Skin, Soft Tissue -Endocarditis -UTI -Bone, Joint Infection -Implantable Device -Acute Abdominal Infection -Wound Infection -Meningitis -Blood Stream Catheter Infection -Unknown Musculoskeletal Complaint Exam - Hip/Pelvis Complaint/Exam Location of Pain: Reports: Right Mechanism of Injury: Reports: Trauma Onset/Duration: 1 hr Symptoms Are: Still present Initial Severity: Mild Current Severity: Mild Location: Reports: Discrete (right hip) Character: Reports: Dull, Aching Aggravating: Reports: Movement, Weight bearing Alleviating: Reports: None Associated Signs and Symptoms: Reports: Syncope Able to Bear Weight: No Septic Arthritis Risk Factors: Reports: None Related Surgical History: Reports: None Rotation: External Pelvis Palpation: Stable Tenderness: Present: Right Range of Motion Limited In: Present: Flexion NV Bundle Intact Distal to Injury: Yes Differential Diagnoses: Fracture Review of Systems - Review Of Systems Constitutional: Reports: No symptoms Eyes: Reports: No symptoms Ears, Nose, Mouth, Throat: Reports: No symptoms Respiratory: Reports: No symptoms Cardiac: Reports: No symptoms GI: Reports: No symptoms : Reports: No symptoms Musculoskeletal: Reports: Joint pain Skin: Reports: No symptoms Neurological: Reports: No symptoms Endocrine: Reports: No symptoms Hematologic/Lymphatic: Reports: No symptoms All Other Systems: Reviewed and Negative Past Medical History - Past Medical History Previously Healthy: Yes Endocrine: Reports: Dyslipidemia Cardiovascular: Reports: Hypertension Respiratory: Reports: None Hematological: Reports: None Gastrointestinal: Reports: None Genitourinary: Reports: None Neuro/Psych: Reports: None Musculoskeletal: Reports: None Cancer: Reports: None - Surgical History General Surgical History: Reports: None - Family History Family History: Reports: None - Social History Smoking Status: Current some day smoker Hx Substance Use: No Alcohol Screening: Occasionally - Immunizations Tetanus Shot up to Date: (unknown) Physical Exam - Physical Exam Appearance: Well-appearing, No pain distress, Well-nourished Pain Distress: Mild Eyes: FREDY, EOMI, Conjunctiva clear ENT: Ears normal, Nose normal, Oropharynx normal Neck: Supple Respiratory: Airway patent, Breath sounds clear, Breath sounds equal, Respirations nonlabored Cardiovascular: RRR GI/: Soft, Nontender, No masses, Bowel sounds normal, No Organomegaly Musculoskeletal: Limited ROM Skin: Warm, Dry, Normal color Neurological: Sensation intact, Motor intact, Reflexes intact, Cranial nerves intact, Alert, Oriented Psychiatric: Affect appropriate, Mood appropriate Interpretation - Radiology Interpretation Radiology Interpretation By: Radiologist Radiology Results: Positive Procedures - Joint Reduction Indications: Present: Dislocation Joint Reduction Site: Digit Conscious Sedation: No Nerve Block Used: Yes Reduction Attempts: 1 Pre-Procedure NV Exam: Yes Post Joint Reduction Film: Joint reduced Physician Notification - Case Discussed Physician Notified: dr armijo(message left on cell) Critical Care Note - Critical Care Note Total Time (mins): 0 Course - Course Hematology/Chemistry: 05/09/17 19:50 05/09/17 19:50 Orders, Labs, Meds: Lab Review 05/09/17 05/09/17 05/09/17 18:41 19:50 19:50 WBC 8.32 RBC 4.22 L Hgb 13.6 L Hct 39.7 L D MCV 94.1 H MCH 32.2 H MCHC 34.3 RDW Coeff of Jermaine 12.6 Plt Count 241 D Immature Gran % (Auto) 0.7 Neut % (Auto) 74.4 Lymph % (Auto) 16.9 [place] % (Auto) 6.4 Eos % (Auto) 1.4 Baso % (Auto) 0.2 Immature Gran # (Auto) 0.1 Neut # 6.2 Lymph # 1.4 [place] # 0.5 Eos # 0.1 Baso # 0.0 Puncture Site Rr O2 Saturation 95.0 ABG pH 7.477 H ABG pCO2 33.8 L ABG pO2 69.0 L ABG HCO3 25 ABG Total CO2 26 ABG Base Excess 1 Cedric Test + FiO2 % 21.0 Sodium 137 Potassium 4.2 Chloride 101 Carbon Dioxide 26 Anion Gap 14.2 BUN 14 Creatinine 0.93 Estimated GFR (MDRD) 78.00 BUN/Creatinine Ratio 15.05 Glucose 102 Calcium 10.4 H Total Bilirubin 0.5 AST 57 H ALT 54 Alkaline Phosphatase 60 Total Protein 7.1 Albumin 3.3 L Globulin 3.8 Albumin/Globulin Ratio 0.87 Orders Category Date Time Status ABG DRAW REQUEST Stat CARDIO 05/09/17 18:41 Completed EKG-(ED ONLY) Stat CARDIO 05/09/17 18:41 Completed ABG Stat LAB 05/09/17 18:41 Completed CBC W/ AUTO DIFF Stat LAB 05/09/17 19:50 Completed COMPREHENSIVE METABOLIC PANEL Stat LAB 05/09/17 19:50 Completed URINALYSIS C & S IF INDICATED Stat LAB 05/09/17 18:41 Uncollected Lidocaine HCl/Pf [Lidocaine HCl 1% Sdv] MEDS 05/09/17 19:35 Discontinued 5 ml SUBCUT ONCE STA CT CERVICAL SPINE W/O CONTRAST Stat RADS 05/09/17 18:[address] CHEST W/O CONTRAST Stat RADS 05/09/17 18:[address] HEAD W/O CONTRAST Stat RADS 05/09/17 18:[address] LUMBAR SPINE W/O CONTRAST Stat RADS 05/09/17 18:[address] PELVIS W/O CONTRAST Stat RADS 05/09/17 18:[address] THORACIC SPINE W/O CONTRAST Stat RADS 05/09/17 18:41 Completed FINGER(S) RIGHT MIN 2V Stat RADS 05/09/17 18:43 Completed FINGER(S) RIGHT MIN 2V Stat RADS 05/09/17 19:56 Taken HAND, RIGHT 3 VIEWS Stat RADS 05/09/17 18:42 Completed Medications Discontinued Medications Generic Name Dose Route Start Last Admin Trade Name Freq PRN Reason Stop Dose Admin Lidocaine HCl 5 ml 05/09/17 19:35 Lidocaine Hcl 1% Sdv SUBCUT 05/09/17 19:36 ONCE STA Vital Signs: Temp Pulse Resp BP Pulse Ox 05/09/17 18:26 98.5 F 64 16 163/81 H 97 Departure - Departure Time of Disposition: 20:04 Disposition: TSF SHORT-TRM HOSP Discharge Problem: Dislocation, finger closed Qualifiers: Encounter type: initial encounter Qualified Code(s): S63.259A - Unspecified dislocation of unspecified finger, initial encounter Fracture of femoral neck, right, closed Qualifiers: Encounter type: initial encounter Qualified Code(s): S72.001A - Fracture of unspecified part of neck of right femur, initial encounter for closed fracture Condition: Stable Pt referred to PMD for follow-up: Yes IPMP verified?: No Allergies/Adverse Reactions: Allergies No Known Allergies Allergy (Verified 05/06/17 08:02) Home Medications: Ambulatory Orders Aspirin [Aspirin Chewable] 81 mg PO DAILYWM 11/12/13 Lisinopril/Hydrochlorothiazide [Zestoretic 20-12.5 mg Tab] 0.5 tab PO DAILY 07/23 Metoprolol Tartrate [Lopressor] 50 mg PO DAILY 11/12/13 Omeprazole [Prilosec] 20 mg PO QDAC PRN 11/12/13 Simvastatin 20 mg PO BEDTIME 11/12/13 Tamsulosin HCl [Flomax] 0.4 mg PO DAILY 11/12/13 Fenofibrate Nanocrystallized [Fenofibrate] 145 mg PO DAILY 05/06/17 Levocetirizine Dihydrochloride [Xyzal] 5 mg PO DAILY 05/06/17 Memantine HCl 10 mg PO DAILY 05/06/17 Transfer Form Completed: Yes Disposition Discussed With: Patient, Family
--- NOTE | 2017-05-09 20:24 | DI ---
Exam: Right four views History: Post reduction of dislocation Findings / impression: Compared with earlier same day there has been interval reduction of the proxi mal interphalangeal dislocation. There is probably a fractured osteophyte on the dorsum of the proxi mal phalanx head. No additional fracture lines are seen. No change from earlier study otherwise.
[2017-05-09] MEDS ORDERED: MORPHINE 2 MG/ML SYRINGE IVP PRN (20:36)
== END 2017-05-09 21:40 | disposition short-term general hospital (02) ==
LOC: ED 18:25
DX: S63.284A Dislocation of proximal interphalangeal joint of right ring finger, initial encounter (principal); S72.001A Fracture of unspecified part of neck of right femur, initial encounter for closed fracture; R55 Syncope and collapse; W19.XXXA Unspecified fall, initial encounter; Y92.238 Other place in hospital as the place of occurrence of the external cause; F17.210 Nicotine dependence, cigarettes, uncomplicated
CPT/HCPCS: 36415; 80053; 81001; 82803; 85025; 93005; 93010; 96372; 99285

== ENCOUNTER 2017-05-09 21:32 | Outpatient (CLI) ==
[2017-05-09 18:42] VITALS: BMI 26.6
== END 2017-05-09 21:33 | disposition short-term general hospital (02) ==
LOC: AMBL 21:32
PROVIDERS: ATTEND Family Medicine
DX: S72.011A Unspecified intracapsular fracture of right femur, initial encounter for closed fracture (principal); S62.604A Fracture of unspecified phalanx of right ring finger, initial encounter for closed fracture; W10.9XXA Fall (on) (from) unspecified stairs and steps, initial encounter; F03.90 Unspecified dementia, unspecified severity, without behavioral disturbance, psychotic disturbance, mood disturbance, and anxiety

== ENCOUNTER 2018-05-24 09:10 | Outpatient (CLI) ==
--- NOTE | 2018-05-24 09:33 | DI ---
EXAM: CHEST FRONTAL AND LATERAL VIEWS HISTORY: Tiredness. COMPARISON: 05/06/2017 FINDINGS: Heart size is within normal limits. There is aortic ectasia and atherosclerosis. Lungs a re mildly hyperinflated. There are scattered calcifications suggesting old granulomatous disease. N o acute infiltrates are seen. No vascular congestion. There is no consolidation, visible pleural fl uid or pneumothorax. Bones reveal no acute fracture. IMPRESSION: No acute cardiopulmonary process.
--- NOTE | 2018-05-24 10:12 | CT ---
EXAM: CT of the abdomen pelvis with contrast History: Lower abdominal pain and weakness. Comparison: CT abdomen pelvis 02/03/2015, CT pelvis 05/09/2017 Technique: Multiplanar CT images through the abdomen pelvis were obtained following administration o f IV contrast. Findings: Lung bases are clear. Postsurgical changes of the proximal right femur and within the lum bosacral spine. Degenerative changes of the spine. Status post cholecystectomy. Mild to moderate intrahepatic biliary ductal dilatation. 2 cm cystic l esion within the superior body of the pancreas and 1.2 cm cystic lesion within the pancreatic tail. Adrenal glands are unremarkable. Calcified granulomas within the liver and spleen. Mild to moderate right hydronephrosis. A few calcifications are seen within the proximal right ureter with the large st measuring 7 mm. There are multiple right renal calculi with the largest measuring 4 mm. No renal masses. Fluid filled nondilated loops of bowel. No bladder wall thickening. Prostate is not enlar ged. Moderate colonic stool. No free air and no ascites. Impression: 1. Proximal right ureteral calculi causing mild to moderate right hydronephrosis. 2. Intrahepatic biliary ductal dilatation and indeterminate pancreatic cystic lesions. Recommend fu rther evaluation with MRI/MRCP of the abdomen
== END 2018-05-24 09:11 | disposition home or self-care (01) ==
LOC: RAD 09:10
PROVIDERS: ATTEND Internal Medicine
DX: E86.0 Dehydration (principal); R10.30 Lower abdominal pain, unspecified; R53.83 Other fatigue; R53.1 Weakness

== ENCOUNTER 2018-05-26 08:10 | Outpatient (CLI) ==
--- NOTE | 2018-05-26 11:20 | MRI ---
EXAM: MRI of the abdomen with and without contrast and MRCP History: Pancreatic mass. Comparison: CT abdomen pelvis 05/24/2018 Technique: Multiplanar, multisequence MRI images through the abdomen were obtained with and without the administration of IV contrast. 10 mL of Dotarem was given intravenously. MIP images and 3-D rec onstructions were also acquired. MRCP images were also obtained. Findings: Image quality is compromised due to significant motion artifact. Lung bases are clear. Bone marrow signal is nonspecific. There are degenerative changes of the spin e with scoliosis. Postsurgical changes of the lumbosacral spine. Mild to moderate right hydronephrosis, similar to the previous CT. No renal masses. No left hydrone phrosis. Status post cholecystectomy. The liver and spleen are not enlarged. There is mild intrahe patic biliary ductal dilatation. Common bile duct measures up to 1 cm in caliber. No choledocholith iasis. Pancreatic duct is upper limits normal in caliber measuring 4 mm. No abdominal ascites. No significant signal drop out within liver on opposed phase imaging to suggest fatty infiltration. Adr enal glands are unremarkable. No dilated loops of bowel. No pathologically enlarged lymph nodes. C alcified granulomas are seen within the liver and spleen. Portal veins are patent. 2 cm cyst within the pancreatic body and 1.4 cm cyst within the pancreatic tail. These cysts do not demonstrate any solid enhancing components. Impression: 1. Examination is limited due to significant motion artifact. 2. Pancreatic cysts with no solid enhancing components are most likely benign. Recommend followup s tudy in 6 -12 months to document stability. 3. Mild to moderate right hydronephrosis not significantly changed. 4. Mild intrahepatic biliary ductal dilatation could be within normal limits for a patient status po st cholecystectomy. Common bile duct is not dilated and there is no choledocholithiasis.
== END 2018-05-26 08:11 | disposition home or self-care (01) ==
LOC: RAD 08:10
PROVIDERS: ATTEND Internal Medicine
DX: R93.5 Abnormal findings on diagnostic imaging of other abdominal regions, including retroperitoneum (principal); K86.2 Cyst of pancreas; K31.89 Other diseases of stomach and duodenum

== ENCOUNTER 2018-07-04 17:40 | Outpatient (CLI) | END 2018-07-04 17:50 | disposition short-term general hospital (02) | LOC: AMBL 17:40 | PROVIDERS: ATTEND Emergency Medicine | DX: R55 Syncope and collapse (principal); R10.9 Unspecified abdominal pain; R11.0 Nausea; R10.13 Epigastric pain; R00.1 Bradycardia, unspecified; R73.9 Hyperglycemia, unspecified; R94.31 Abnormal electrocardiogram [ECG] [EKG]; R40.2411 Glasgow coma scale score 13-15, in the field [EMT or ambulance] ==

== ENCOUNTER 2018-07-06 13:50 | Outpatient (CLI) ==
--- NOTE | 2018-07-06 17:29 | US ---
EXAM: Carotid ultrasound HISTORY: Syncope COMPARISON: 04/02/2016 TECHNIQUE: Carotid ultrasound was performed using Duplex imaging with bal scale, color, and Doppler imaging performed. FINDINGS: Right carotid: There is atherosclerotic plaque in the common carotid and bulb/internal carotid arter y. Peak systolic velocity measurement in the right internal carotid artery is 0.79 meters per second . End-diastolic velocity measurement in the right internal carotid artery is 0.24 meters per second. Right internal to common carotid artery peak systolic velocity ratio is 1.2. Flow in the right shauna tebral artery is antegrade. Left carotid: There is atherosclerotic plaque in the common carotid and bulb/internal carotid artery . Peak systolic velocity measurement in the left internal carotid artery is 0.58 meters per second. End-diastolic velocity measurement in the left internal carotid artery is 0.77 meters per second. L eft internal to common carotid artery peak systolic velocity ratio measures 0.8. Flow in the left ve rtebral artery is antegrade. IMPRESSION: 1. Right internal carotid: Peak systolic velocity corresponds with mild (less than 50%) stenosis. 2. Left internal carotid: Peak systolic velocity corresponds with mild (less than 50%) stenosis.
== END 2018-07-06 13:51 | disposition home or self-care (01) ==
LOC: RAD 13:50
PROVIDERS: ATTEND Internal Medicine
DX: R55 Syncope and collapse (principal)